=== PATIENT | male | born 1985 ===

== ENCOUNTER 2017-04-22 20:44 | Emergency (ER) | payer BC ==
[2017-04-22 21:56] VITALS: BP 128/80; TEMP 98; O2SAT 99
[2017-04-22] MEDS ORDERED: Tetanus/Diphtheria Toxoids 0.5 ml Syringe IM ONE ×2 (22:45→23:28)
[2017-04-22] MEDS ORDERED: Lidocaine Hydrochloride 5 ML INJ ONE (22:52)
[2017-04-22] MEDS ORDERED: Bacitracin 500 Units/gm Oint Foilpak UD ONE (23:28)
--- NOTE | 2017-04-22 23:44 | C.PDOC ---
History Of Present Illness 31 year old male who presents to the ER with a complaint of a laceration to his right middle finger after he cut it on a slicer at work earlier today. Denies weakness or numbness. Time Seen by Provider: 04/22/17 22:01 Chief Complaint (Nursing): Abnormal Skin Integrity History Per: Patient History/Exam Limitations: no limitations Onset/Duration Of Symptoms: Hrs Current Symptoms Are (Timing): Still Present Location Of Injury: Right: Hand Quality Of Symptoms: Other (Laceration) Recent travel outside of the [place]: No Past Medical History Reviewed: Historical Data, Nursing Documentation, Vital Signs Vital Signs: Last Vital Signs Temp 98.0 F 04/22/17 21:52 Pulse 72 04/22/17 23:40 Resp 18 04/22/17 23:40 BP 128/80 04/22/17 21:52 Pulse Ox 99 04/23/17 04:50 - Medical History PMH: No Chronic Diseases Surgical History: No Surg Hx Family History: States: Unknown Family Hx - Social History Hx Alcohol Use: Yes Hx Substance Use: No - Immunization History Hx Tetanus Toxoid Vaccination: No Hx Influenza Vaccination: No Hx Pneumococcal Vaccination: No Review Of Systems Musculoskeletal: Positive for: Hand Pain Skin: Positive for: Other (Laceration) Neurological: Negative for: Weakness, Numbness Physical Exam - Physical Exam Appears: Non-toxic, No Acute Distress Skin: Warm, Dry Head: Atraumatic, Normacephalic Eye(s): bilateral: Normal Inspection Extremity: Normal ROM (x4), Capillary Refill (Good), Other (2cm stellate laceration to the palmar aspect of the right middle finger distally) Pulses: Left Radial: Normal, Right Radial: Normal Neurological/Psych: Oriented x3, Normal Speech, Normal Cognition ED Course And Treatment O2 Sat by Pulse Oximetry: 99 (Room air) Pulse Ox Interpretation: Normal Progress Note: Tetanus vaccination administered. Patient tolerated laceration repair with no difficulty; patient give proper wound care instructions and advised to follow up for suture removal. Laceration - Laceration Repair Right middle finger Wound Length (In cm): 2 Description Of Wound: Stellate Wound Cleansed With: Sterile Saline Anesthesia: Lidocaine 1% (Digital block) Wound Examination: Irrigated With Saline, No FB With Wound Exploration, No Tendon Injury With Wound Exploration Wound Closure: Suture (x6) Suture Technique And Material Used: Nylon (4-0) Wound Complexity: Simple (pt tolerated well, dressed with bacitracin) Disposition Counseled Patient/Family Regarding: Diagnosis, Need For Followup - Disposition Referrals: [facility] [Outside] Disposition: HOME/ ROUTINE Disposition Time: 23:41 Condition: STABLE Additional Instructions: Please follow up in clinic Wound care instructions as directed Suture removal in 10 days Return to ER if worse Instructions: Finger Laceration (ED) Forms: [employer] (Uzbek) - Clinical Impression Clinical Impression: Laceration of finger - Scribe Statement The provider has reviewed the documentation as recorded by the Scribe Les Block All medical record entries made by the Kevonibe were at my direction and personally dictated by me. I have reviewed the chart and agree that the record accurately reflects my personal performance of the history, physical exam, medical decision making, and the department course for this patient. I have also personally directed, reviewed, and agree with the discharge instructions and disposition.
[2017-04-23 00:05] VITALS: PULSE 72; RESP 18
== END 2017-04-22 23:40 | disposition home or self-care (01) ==
LOC: C.ER 20:44
DX: S61.212A Laceration without foreign body of right middle finger without damage to nail, initial encounter (principal); W45.8XXA Other foreign body or object entering through skin, initial encounter; Y99.0 Civilian activity done for income or pay; Z23 Encounter for immunization